=== PATIENT | male | born 1935 | race Caucasian/White ===

== ENCOUNTER 2018-01-07 14:45 | Inpatient (IN) | payer MEDICARE, BC ==
--- NOTE | 2018-01-07 15:23 | ER Document Report ---
ED Medical Screen (RME) - General Chief Complaint: Urinary Problem Stated Complaint: URINATING BLOOD Time Seen by Provider: 01/07/18 15:21 Notes: Spontaneous onset of blood in the urine this morning. He does have pain with urination. He denies being on any blood thinners or previous similar symptoms. TRAVEL OUTSIDE OF THE [place] IN LAST 30 DAYS: No - Related Data Allergies/Adverse Reactions: erythromycin lactobionate [From Erythrocin] Allergy (Verified 01/07/18 14:48) RASH Sulfa (Sulfonamide Antibiotics) Allergy (Verified 01/07/18 14:48) RASH Past Medical History - Social History Chew tobacco use (# tins/day): No Frequency of alcohol use: None Drug Abuse: None - Past Medical History Cardiac Medical History: Denies: Hx Heart Attack, Hx Hypertension Pulmonary Medical History: Denies: Hx Asthma Neurological Medical History: Denies: Hx Cerebrovascular Accident, Hx Seizures Renal/ Medical History: Denies: Hx Peritoneal Dialysis GI Medical History: Denies: Hx Hepatitis, Hx Hiatal Hernia, Hx Ulcer Infectious Medical History: Denies: Hx Hepatitis Past Surgical History: Denies: Hx Open Heart Surgery, Hx Pacemaker Physical Exam - Vital signs Vitals: Temp Pulse Resp BP Pulse Ox 97.4 F 74 18 129/69 H 98 01/07/18 15:02 01/07/18 15:02 01/07/18 15:02 01/07/18 15:02 01/07/18 15:02 Course - Vital Signs Vital signs: Temp Pulse Resp BP Pulse Ox 97.4 F 74 18 129/69 H 98 01/07/18 15:02 01/07/18 15:02 01/07/18 15:02 01/07/18 15:02 01/07/18 15:02
--- NOTE | 2018-01-07 16:45 | ER Document Report ---
ED GI/ - General Chief Complaint: Urinary Problem Stated Complaint: URINATING BLOOD Time Seen by Provider: 01/07/18 15:21 Mode of Arrival: Ambulatory Information source: Patient TRAVEL OUTSIDE OF THE [place] IN LAST 30 DAYS: No - HPI Patient complains to provider of: Hematuria Onset: Other - 3 DAYS Timing/Duration: Constant Quality of pain: Burning, Pressure Severity at maximum: Moderate Severity in ED: Moderate Context: denies: Bad food, Lifting, Out of the country travel, Recent trauma Location: Suprapubic. No: Left flank, Right flank, Left testicle, Right testicle Associated symptoms: None. denies: Chills, Fever, Lightheaded, Nausea, Sweaty, Syncope Exacerbated by: Denies Relieved by: Denies Similar symptoms previously: No Recently seen / treated by doctor: No Notes: 01/07/18 17:03 Gross hematuria first noted 3 days ago, patient states it has been getting gradually worse. Denies passage of clots. - Related Data Allergies/Adverse Reactions: erythromycin lactobionate [From Erythrocin] Allergy (Verified 01/07/18 14:48) RASH Sulfa (Sulfonamide Antibiotics) Allergy (Verified 01/07/18 14:48) RASH Past Medical History - General Information source: Patient - Social History Smoking Status: Never Smoker Chew tobacco use (# tins/day): No Frequency of alcohol use: None Drug Abuse: None Lives with: Spouse/Significant other Family History: Reviewed & Not Pertinent Patient has suicidal ideation: No Patient has homicidal ideation: No - Past Medical History Cardiac Medical History: Reports: None Denies: Hx Heart Attack, Hx Hypertension Pulmonary Medical History: Reports: None Denies: Hx Asthma EENT Medical History: Reports: None Neurological Medical History: Reports: None. Denies: Hx Cerebrovascular Accident, Hx Seizures Endocrine Medical History: Reports: None Renal/ Medical History: Reports: None. Denies: Hx Peritoneal Dialysis Malignancy Medical History: Reports None GI Medical History: Reports: None. Denies: Hx Hepatitis, Hx Hiatal Hernia, Hx Ulcer Musculoskeltal Medical History: Reports None Psychiatric Medical History: Reports: None Infectious Medical History: Denies: Hx Hepatitis Surgical Hx: Negative Past Surgical History: Denies: Hx Open Heart Surgery, Hx Pacemaker Review of Systems - Review of Systems Constitutional: No symptoms reported. denies: Chills, Diaphoresis, Fever EENT: No symptoms reported Cardiovascular: No symptoms reported Respiratory: No symptoms reported Gastrointestinal: No symptoms reported Genitourinary: See HPI Male Genitourinary: See HPI Musculoskeletal: No symptoms reported Skin: No symptoms reported Hematologic/Lymphatic: No symptoms reported. denies: Easy bleeding, Easy bruising Neurological/Psychological: No symptoms reported Physical Exam - Vital signs Vitals: Temp Pulse Resp BP Pulse Ox 97.4 F 74 18 129/69 H 98 01/07/18 15:02 01/07/18 15:02 01/07/18 15:02 01/07/18 15:02 01/07/18 15:02 Interpretation: Normal. No: Hypotensive, Tachycardic, Tachypneic - General General appearance: Appears well, Alert In distress: None - HEENT Head: Normocephalic Eyes: Normal Conjunctiva: Normal Ears: Normal Nasal: Normal Mouth/Lips: Normal Mucous membranes: Normal - Respiratory Respiratory status: No respiratory distress - Cardiovascular Rhythm: Regular - Abdominal Inspection: Normal Distension: No distension - Genitourinary Notes: Continuously dribbling grossly bloody urine. - Back Back: Normal. No: CVA tenderness - Extremities General upper extremity: Normal inspection General lower extremity: Normal inspection. No: Tender, Edema - Neurological Neuro grossly intact: Yes Cognition: Normal Orientation: AAOx4 - Psychological Associated symptoms: Normal affect, Normal mood - Skin Skin Temperature: Warm Skin Moisture: Dry Skin Color: Normal Skin Turgor: Elastic Course - Re-evaluation Re-evalutation: 01/07/18 18:04 Indwelling Correa catheter was inserted by nursing staff without difficulty. 350 cc of grossly bloody urine drained. Patient states he is much more comfortable now. - Vital Signs Vital signs: Temp Pulse Resp BP Pulse Ox 97.4 F 74 18 129/69 H 93 01/07/18 15:02 01/07/18 15:02 01/07/18 15:02 01/07/18 15:02 01/07/18 21:00 - Laboratory Result Diagrams: 01/07/18 17:22 01/07/18 17:22 Laboratory results interpreted by me: 01/07/18 01/07/18 16:00 17:22 Sodium 136.2 L BUN 36 H Creatinine 1.30 H Est GFR (Non-Af Amer) 53 L Glucose 315 H Urine Protein >=500 H Urine Glucose (UA) >=500 H Urine Blood LARGE H - Consults DR. 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 AGREES WITH NEED FOR CBI. DR. SILVERIO Time consulted: 21:45 Consulted provider: will come to ER Discharge - Discharge Clinical Impression: Hematuria Qualifiers: Hematuria type: gross Qualified Code(s): R31.0 - Gross hematuria Diabetes Qualifiers: Diabetes mellitus type: type 2 Diabetes mellitus local intermodal truck driver insulin use: unspecified custodial insulin use status Diabetes mellitus complication status: without complication Qualified Code(s): E11.9 - Type 2 diabetes mellitus without complications Condition: Good Disposition: ADMITTED OBSERVATION Admitting Provider: Hospitalist Unit Admitted: Telemetry Referrals: JOSE MARIA BLANKENSHIP MD [Primary Care Provider] - Follow up as needed
[2018-01-07] MEDS ORDERED: ONDANSETRON HCL INJ/PF 4 MG/2 ML SDV IV ONE (16:56)
[2018-01-07] MEDS ORDERED: FENTANYL CITRATE INJ/PF 100 MCG/2 ML AMPUL IV ONE (16:57)
[2018-01-07 17:35] LABS: ABSOLUTE BASOPHILS # (AUTO) 0.1 10^3/uL (0.0-0.2); ABSOLUTE LYMPHOCYTES (AUTO) 1.5 10^3/uL (0.5-4.7); ABSOLUTE MONOCYTES (AUTO) 0.6 10^3/uL (0.1-1.4); ABSOLUTE NEUT (AUTO) 7.3 10^3/uL (1.7-8.2); BASOPHILS % (AUTO) 0.5 % (0-2); EOSINOPHILS % (AUTO) 0.5 % (0-6); HEMATOCRIT 41.8 % (37.9-51.0); HEMOGLOBIN 13.8 g/dL (13.5-17.0); LYMPHOCYTES % (AUTO) 15.5 % (13-45); MEAN CORPUSCULAR HEMOGLOBIN 29.3 pg (27.0-33.4); MEAN CORPUSCULAR HGB CONC 32.9 g/dL (32.0-36.0); MEAN CORPUSCULAR VOLUME 89 fl (80-97); MONOCYTES % (AUTO) 6.3 % (3-13); PLATELET COUNT 177 10^3/uL (150-450); RED CELL DISTRIBUTION WIDTH 12.8 % (11.5-14.0); SEGMENTED NEUTROPHILS % (AUTO) 77.2 % (42-78); TOTAL CELLS COUNTED % (AUTO) 100 %; WHITE BLOOD COUNT 9.4 10^3/uL (4.0-10.5)
[2018-01-07 17:45] LABS: INTERNATIONAL RATION (INR) 0.96; PROTHROMBIN TIME 13.3 SEC (11.4-15.4)
[2018-01-07 17:53] LABS: APPEARANCE,URINE CLOUDY; BILIRUBIN,URINE NEGATIVE (NEGATIVE); GLUCOSE, URINE >=500 mg/dL (NEGATIVE); KETONES,URINE NEGATIVE (NEGATIVE); LEUKOCYTE ESTERASE,URINE NEGATIVE (NEGATIVE); NITRITE,URINE NEGATIVE (NEGATIVE); PROTEIN,URINE >=500 mg/dL (NEGATIVE); URINE SPECIFIC GRAVITY 1.021; UROBILINOGEN,URINE NEGATIVE mg/dL (<2.0)
[2018-01-07 17:54] LABS: COLOR,URINE RED
[2018-01-07 17:55] LABS: ALANINE AMINOTRANSFERASE 24 U/L (21-72); ALBUMIN 4.2 g/dL (3.5-5.0); ALKALINE PHOSPHATASE 71 U/L (38-126); ANION GAP 11 (5-19); ASPARTATE AMINO TRANSFERASE 22 U/L (17-59); BILIRUBIN,DIRECT 0.3 mg/dL (0.0-0.4); BILIRUBIN,TOTAL 0.7 mg/dL (0.2-1.3); BLOOD UREA NITROGEN 36 mg/dL (7-20); CALCIUM 9.4 mg/dL (8.4-10.2); CARBON DIOXIDE 26 mmol/L (22-30); CHLORIDE 99 mmol/L (98-107); GLUCOSE 315 mg/dL (75-110); POTASSIUM 4.8 mmol/L (3.6-5.0); SODIUM 136.2 mmol/L (137-145)
[2018-01-07] MEDS: NORMAL SALINE 1000 ML 1,000 ML IV PRN ×2 (18:17→23:20)
[2018-01-07] MEDS ORDERED: CEFTRIAXONE 1 GM/D5W RTU 1 GM/50 ML RTUPB IV ONE (19:30)
--- NOTE | 2018-01-07 20:04 | RADIOLOGY REPORT (SQ) ---
EXAM DESCRIPTION: CT LTD RENAL STONE PROTOCOL ON COMPLETED DATE/TIME: 01/07/2018 7:53 pm REASON FOR STUDY: HEMATURIA COMPARISON: None. TECHNIQUE: CT scan of the abdomen and pelvis performed without intravenous or oral contrast. Images reviewed with lung, soft tissue, and bone windows. Reconstructed coronal and sagittal MPR images revi ewed. All images stored on PACS. All CT scanners at this facility use dose modulation, iterative reconstruction, and/or weight based d osing when appropriate to reduce radiation dose to as low as reasonably achievable (ALARA). [facility]: Dose Right [facility]: CareDose [facility]: Dose Right [facility]: Teradose 4D [facility]: Smart [employer] Systems RADIATION DOSE: CT Rad equipment meets quality standard of care and radiation dose reduction techniq ues were employed. CTDIvol: 4.9 mGy. DLP: 276 mGy-cm.mGy. LIMITATIONS: None. FINDINGS: LOWER CHEST: No significant findings. No nodules or infiltrates. NON-CONTRASTED LIVER, SPLEEN, ADRENALS: Evaluation limited by lack of IV contrast. No identified sign ificant masses. PANCREAS: No masses. No peripancreatic inflammatory changes. GALLBLADDER: No identified stones by CT criteria. No inflammatory changes to suggest cholecystitis. RIGHT KIDNEY AND URETER: Well circumscribed low density mass(es) statistically most likely to be cyst (s). Assessment limited by lack of iv contrast. No significant calcifications. No hydronephrosis or hydroureter. LEFT KIDNEY AND URETER: Well circumscribed low density mass(es) statistically most likely to be cyst( s). Assessment limited by lack of iv contrast. Largest 9 cm. No significant calcifications. No hy dronephrosis or hydroureter. AORTA AND RETROPERITONEUM: No aneurysm. No retroperitoneal masses or adenopathy. BOWEL AND PERITONEAL CAVITY: No obvious masses or inflammatory changes. No free fluid. APPENDIX: Normal. PELVIS, BLADDER, AND ABDOMINAL WALL:Extensive high density fluid in bladder consistent with blood. F oley catheter present. Air in the bladder. No definitive mass lesion. BONES: No significant findings. OTHER: No other significant finding. IMPRESSION: No obstructive changes. Multiple masses in the kidneys most likely cysts. Correa catheter in the bladder with extensive hemorrhage present in the bladder. No identified mass. COMMENT: Quality ID # [id number]: Final reports with documentation of one or more dose reduction techniques (e.g., Automated exposure control, adjustment of the mA and/or kV according to patient size, use of iterative reconstruction technique) TECHNICAL DOCUMENTATION: JOB ID: [id number] [employer]- All Rights Reserved Reading location - IP/workstation name: [email or web address]
[2018-01-07] MEDS ORDERED: CEFTRIAXONE SODIUM 1,000 MG in NORMAL SALINE 100 ML IV ONE (20:30)
[2018-01-07] MEDS ORDERED: HYDROMORPHONE HCL INJ/PF 2 MG/ML AMPULE IV ONE (20:50)
[2018-01-07] MEDS ORDERED: TAMSULOSIN HCL 0.4 MG CAP.SR.24H PO ONE (22:02)
[2018-01-07] MEDS ORDERED: DEXTROSE 40% GEL 15 GM TUBE PO PRN ×2 (22:02)
[2018-01-07] MEDS ORDERED: ONDANSETRON HCL INJ/PF 4 MG/2 ML SDV IV PRN (22:02)
[2018-01-07] MEDS ORDERED: DEXTROSE 50%-WATER 25 GM/50 ML DISP.SYRIN IV PRN ×2 (22:02)
[2018-01-07] MEDS ORDERED: GLUCAGON,HUMAN RECOMB 1 MG INJ IM PRN (22:02)
[2018-01-07] MEDS ORDERED: NORMAL SALINE 1000 ML 1,000 ML IV SCH (22:15)
[2018-01-08] MEDS: INSULIN LISPRO 100 UNIT/ML 3 ML VIAL SUBCUT PRN ×3 (00:49→16:54)
[2018-01-08] MEDS: ACETAMINOPHEN 325 MG TABLET PO PRN ×2 (05:02→08:50)
[2018-01-08] MEDS: HEPARIN SOD (PORCINE) 5,000 UNIT/ML 1 ML SYRINGE SUBCUT SCH ×2 (05:02→13:38)
[2018-01-08 05:15] LABS: ABSOLUTE EOSINOPHILS # (AUTO) 0.1 10^3/uL (0.0-0.6); ABSOLUTE LYMPHOCYTES (AUTO) 2.1 10^3/uL (0.5-4.7); ABSOLUTE NEUT (AUTO) 5.4 10^3/uL (1.7-8.2); BASOPHILS % (AUTO) 0.4 % (0-2); EOSINOPHILS % (AUTO) 0.9 % (0-6); HEMATOCRIT 35.6 % (37.9-51.0); LYMPHOCYTES % (AUTO) 24.2 % (13-45); MEAN CORPUSCULAR HEMOGLOBIN 29.9 pg (27.0-33.4); MEAN CORPUSCULAR HGB CONC 33.7 g/dL (32.0-36.0); MEAN CORPUSCULAR VOLUME 89 fl (80-97); MONOCYTES % (AUTO) 11.9 % (3-13); PLATELET COUNT 135 10^3/uL (150-450); RED BLOOD COUNT 4.01 10^6/uL (4.35-5.55); SEGMENTED NEUTROPHILS % (AUTO) 62.6 % (42-78); TOTAL CELLS COUNTED % (AUTO) 100 %; WHITE BLOOD COUNT 8.7 10^3/uL (4.0-10.5)
[2018-01-08 05:36] LABS: ANION GAP 8 (5-19); BLOOD UREA NITROGEN 33 mg/dL (7-20); CALCIUM 8.8 mg/dL (8.4-10.2); CARBON DIOXIDE 27 mmol/L (22-30); CHLORIDE 107 mmol/L (98-107); GLUCOSE 142 mg/dL (75-110); POTASSIUM 4.1 mmol/L (3.6-5.0); SODIUM 142.3 mmol/L (137-145)
[2018-01-08] MEDS ORDERED: KETOROLAC TROMETHAMINE INJ/PF 30 MG/1 ML SDV IV ONE (05:45)
--- NOTE | 2018-01-08 06:07 | PDOC H&P ---
History of Present Illness Admission Date/PCP: 01/07/18 22:25 JOSE MARIA BLANKENSHIP MD Patient complains of: Urinating blood History of Present Illness: TR TUCKER is a 82 year old male with a past medical history of BPH and diabetes. Presenting with 48 hours of urinating blood. Denying recent dysuria , polyuria or fever. No previous episode, no new medication. In the emergency room is found to have hematuria with clots. Limited renal stone protocol CT shows bilateral renal cysts, extensive hemorrhage in the bladder without obstruction. Urology Dr. Timmons is consulted recommending continuous bladder irrigation. He is referred to the hospitalist for admission. Past Medical History Cardiac Medical History: Reports: None Denies: Myocardial Infarction, Hypertension Pulmonary Medical History: Reports: None Denies: Asthma EENT Medical History: Reports: None Neurological Medical History: Reports: None Denies: Seizures Endocrine Medical History: Reports: None, Diabetes Mellitus Type 2 Renal/ Medical History: Reports: None Malignancy Medical History: Reports: None GI Medical History: Reports: None Denies: Hepatitis, Hiatal Hernia Musculoskeltal Medical History: Reports: None Psychiatric Medical History: Reports: None Hematology: Denies: Anemia, Sickle Cell Disease Past Surgical History Past Surgical History: Denies: Pacemaker Social History Information Source: Patient Lives with: Spouse/Significant other Smoking Status: Never Smoker Frequency of Alcohol Use: Rare Drugs: None Family History Family History: None Parental Family History Reviewed: Yes Children Family History Reviewed: Yes Sibling(s) Family History Reviewed.: Yes Medication/Allergy Home Medications: Insulin Glargine,Hum.rec.anlog [Lantus Solostar] 12 units SQ [id number] 01/08/18 Saxagliptin HCl [Onglyza] 5 mg PO PCSUPPER 01/08/18 Allergies/Adverse Reactions: erythromycin lactobionate [From Erythrocin] Allergy (Verified 01/07/18 14:48) RASH Sulfa (Sulfonamide Antibiotics) Allergy (Verified 01/07/18 14:48) RASH Review of Systems Constitutional: ABSENT: chills, fever(s), headache(s), weight gain, weight loss Eyes: ABSENT: visual disturbances Ears: ABSENT: hearing changes Cardiovascular: ABSENT: chest pain, dyspnea on exertion, edema, orthropnea, palpitations Respiratory: ABSENT: cough, hemoptysis Gastrointestinal: ABSENT: abdominal pain, constipation, diarrhea, hematemesis, hematochezia, nausea, vomiting Genitourinary: ABSENT: dysuria, hematuria Musculoskeletal: ABSENT: joint swelling Integumentary: ABSENT: rash, wounds Neurological: ABSENT: abnormal gait, abnormal speech, confusion, dizziness, focal weakness, syncope Psychiatric: ABSENT: anxiety, depression, homidical ideation, suicidal ideation Endocrine: ABSENT: cold intolerance, heat intolerance, polydipsia, polyuria Hematologic/Lymphatic: ABSENT: easy bleeding, easy bruising Physical Exam Vital Signs: Temp Pulse Resp BP Pulse Ox 98.3 F 65 20 137/55 H 100 01/08/18 03:57 01/08/18 03:57 01/08/18 03:57 01/08/18 03:57 01/08/18 03:57 General appearance: PRESENT: mild distress - Intermittent pelvic cramps, well- developed, well-nourished Head exam: PRESENT: atraumatic, normocephalic Eye exam: PRESENT: conjunctiva pink, EOMI, PERRLA. ABSENT: scleral icterus Ear exam: PRESENT: normal external ear exam Mouth exam: PRESENT: moist, tongue midline Neck exam: ABSENT: carotid bruit, JVD, lymphadenopathy, thyromegaly Respiratory exam: PRESENT: clear to auscultation meagan. ABSENT: rales, rhonchi, wheezes Cardiovascular exam: PRESENT: RRR. ABSENT: diastolic murmur, rubs, systolic murmur Pulses: PRESENT: normal dorsalis pedis pul Vascular exam: PRESENT: normal capillary refill GI/Abdominal exam: PRESENT: normal bowel sounds, soft. ABSENT: distended, guarding, mass, organolmegaly, rebound, tenderness Rectal exam: PRESENT: deferred Extremities exam: PRESENT: full ROM. ABSENT: calf tenderness, clubbing, pedal edema Neurological exam: PRESENT: alert, awake, oriented to person, oriented to place , oriented to time, oriented to situation, CN II-XII grossly intact. ABSENT: motor sensory deficit Psychiatric exam: PRESENT: appropriate affect, normal mood. ABSENT: homicidal ideation, suicidal ideation Skin exam: PRESENT: dry, intact, warm. ABSENT: cyanosis, rash Results Laboratory Results: 01/08/18 04:26 01/08/18 04:26 01/08/18 01/08/18 04:26 04:26 WBC 8.7 RBC 4.01 L Hgb 12.0 L Hct 35.6 L MCV 89 MCH 29.9 MCHC 33.7 RDW 13.0 Plt Count 135 L Seg Neutrophils % 62.6 Lymphocytes % 24.2 Monocytes % 11.9 Eosinophils % 0.9 Basophils % 0.4 Absolute Neutrophils 5.4 Absolute Lymphocytes 2.1 Absolute Monocytes 1.0 Absolute Eosinophils 0.1 Absolute Basophils 0.0 Sodium 142.3 Potassium 4.1 Chloride 107 Carbon Dioxide 27 Anion Gap 8 BUN 33 H Creatinine 1.28 H Est GFR ( Amer) > 60 Est GFR (Non-Af Amer) 54 L Glucose 142 H Calcium 8.8 Impressions: Limited or Localized CT 01/07/18 19:31 IMPRESSION: No obstructive changes. Multiple masses in the kidneys most likely cysts. Correa catheter in the bladder with extensive hemorrhage present in the bladder. No identified mass. Assessment & Plan - Diagnosis (1) Hematuria Qualifiers: Hematuria type: gross Qualified Code(s): R31.0 - Gross hematuria Is this a current diagnosis for this admission?: Yes Plan: Urology consultation, continuous bladder irrigation. (2) Diabetes Qualifiers: Diabetes mellitus type: type 2 Diabetes mellitus terminal superintendent insulin use: unspecified prison insulin use status Diabetes mellitus complication status : without complication Qualified Code(s): E11.9 - Type 2 diabetes mellitus without complications Is this a current diagnosis for this admission?: Yes Plan: Outpatient regiment with Humalog sliding scale.
[2018-01-08] MEDS: DOCUSATE SODIUM 100 MG CAPSULE PO SCH ×2 (09:44→18:35)
[2018-01-08] MEDS ORDERED: OXYCODONE-ACETAMINOPHEN 5-325 MG TABLET PO ONE (09:45)
[2018-01-08] MEDS ORDERED: ONDANSETRON HCL INJ/PF 4 MG/2 ML SDV IV PRN (10:00)
[2018-01-08] MEDS ORDERED: FENTANYL 25 MCG/HR PATCH.TD72 TD ONE (11:00)
[2018-01-08] MEDS ORDERED: LIDOCAINE 2% URO-JET 5 ML KIT MM ONE (12:00)
[2018-01-08 14:31] LABS: HEMATOCRIT 33.7 % (37.9-51.0); HEMOGLOBIN 11.3 g/dL (13.5-17.0); MEAN CORPUSCULAR HEMOGLOBIN 29.7 pg (27.0-33.4); MEAN CORPUSCULAR HGB CONC 33.5 g/dL (32.0-36.0); MEAN CORPUSCULAR VOLUME 89 fl (80-97); PLATELET COUNT 133 10^3/uL (150-450); RED BLOOD COUNT 3.81 10^6/uL (4.35-5.55); RED CELL DISTRIBUTION WIDTH 13.2 % (11.5-14.0)
[2018-01-08] MEDS: NORMAL SALINE 1000 ML 1,000 ML IV PRN (18:36)
[2018-01-08 19:52] LABS: HEMATOCRIT 36.5 % (37.9-51.0); MEAN CORPUSCULAR HEMOGLOBIN 29.3 pg (27.0-33.4); MEAN CORPUSCULAR HGB CONC 32.7 g/dL (32.0-36.0); MEAN CORPUSCULAR VOLUME 90 fl (80-97); PLATELET COUNT 150 10^3/uL (150-450); RED BLOOD COUNT 4.08 10^6/uL (4.35-5.55); RED CELL DISTRIBUTION WIDTH 12.8 % (11.5-14.0); WHITE BLOOD COUNT 8.8 10^3/uL (4.0-10.5)
--- NOTE | 2018-01-08 20:45 | PDOC PROGRESS REPORT ---
Subjective Progress Note for:: 01/08/18 Subjective:: Patient complains of lower abdominal pain and I started him on 25 Des fentanyl patch after which he claims the pain has subsided. Reason For Visit: HEMATURIA,DIABETES Physical Exam Vital Signs: Temp Pulse Resp BP Pulse Ox 98.3 F 70 10 L 105/48 L 96 01/08/18 15:22 01/08/18 15:22 01/08/18 15:22 01/08/18 15:22 01/08/18 15:22 Intake & Output 01/07/18 01/08/18 01/09/18 06:59 06:59 06:59 Intake Total 750 5777 Output Total 1300 6250 Balance -550 -473 Weight 66.1 kg General appearance: PRESENT: no acute distress, well-developed, well-nourished Respiratory exam: PRESENT: clear to auscultation meagan. ABSENT: rales, rhonchi, wheezes Cardiovascular exam: PRESENT: RRR. ABSENT: diastolic murmur, rubs, systolic murmur GI/Abdominal exam: PRESENT: tenderness - Lower abdominal Neurological exam: PRESENT: alert, awake, oriented to time, oriented to situation Results Laboratory Results: 01/08/18 19:30 01/08/18 04:26 01/08/18 01/08/18 01/08/18 04:26 04:26 14:19 WBC 8.7 9.0 RBC 4.01 L 3.81 L Hgb 12.0 L 11.3 L Hct 35.6 L 33.7 L MCV 89 89 MCH 29.9 29.7 MCHC 33.7 33.5 RDW 13.0 13.2 Plt Count 135 L 133 L Seg Neutrophils % 62.6 Lymphocytes % 24.2 Monocytes % 11.9 Eosinophils % 0.9 Basophils % 0.4 Absolute Neutrophils 5.4 Absolute Lymphocytes 2.1 Absolute Monocytes 1.0 Absolute Eosinophils 0.1 Absolute Basophils 0.0 Sodium 142.3 Potassium 4.1 Chloride 107 Carbon Dioxide 27 Anion Gap 8 BUN 33 H Creatinine 1.28 H Est GFR ( Amer) > 60 Est GFR (Non-Af Amer) 54 L Glucose 142 H Calcium 8.8 01/08/18 19:30 WBC 8.8 RBC 4.08 L Hgb 12.0 L Hct 36.5 L MCV 90 MCH 29.3 MCHC 32.7 RDW 12.8 Plt Count 150 Seg Neutrophils % Lymphocytes % Monocytes % Eosinophils % Basophils % Absolute Neutrophils Absolute Lymphocytes Absolute Monocytes Absolute Eosinophils Absolute Basophils Sodium Potassium Chloride Carbon Dioxide Anion Gap BUN Creatinine Est GFR ( Amer) Est GFR (Non-Af Amer) Glucose Calcium Impressions: Limited or Localized CT 01/07/18 19:31 IMPRESSION: No obstructive changes. Multiple masses in the kidneys most likely cysts. Correa catheter in the bladder with extensive hemorrhage present in the bladder. No identified mass. Assessment & Plan - Diagnosis (1) Diabetes Qualifiers: Diabetes mellitus type: type 2 Diabetes mellitus rodent exterminator insulin use: unspecified long-term insulin use status Diabetes mellitus complication status : without complication Qualified Code(s): E11.9 - Type 2 diabetes mellitus without complications Is this a current diagnosis for this admission?: Yes (2) Hematuria Qualifiers: Hematuria type: gross Qualified Code(s): R31.0 - Gross hematuria Is this a current diagnosis for this admission?: Yes Plan: Patient has been on continuous bladder irrigation. He is draining well and becoming clear. The urologist initially contemplated to do cystoscopy on Friday but after he evaluated him once the urine cleared may be he will scope him tomorrow. - Time Time Spent with patient: 15-24 minutes
[2018-01-09] MEDS: HEPARIN SOD (PORCINE) 5,000 UNIT/ML 1 ML SYRINGE SUBCUT SCH ×4 (00:16→20:41)
[2018-01-09 01:36] LABS: HEMATOCRIT 33.9 % (37.9-51.0); HEMOGLOBIN 11.3 g/dL (13.5-17.0); MEAN CORPUSCULAR HEMOGLOBIN 29.7 pg (27.0-33.4); MEAN CORPUSCULAR HGB CONC 33.4 g/dL (32.0-36.0); MEAN CORPUSCULAR VOLUME 89 fl (80-97); PLATELET COUNT 133 10^3/uL (150-450); RED CELL DISTRIBUTION WIDTH 13.2 % (11.5-14.0); WHITE BLOOD COUNT 10.8 10^3/uL (4.0-10.5)
[2018-01-09] MEDS: NORMAL SALINE 1000 ML 1,000 ML IV PRN ×3 (02:09→18:51)
[2018-01-09 08:25] LABS: ABSOLUTE EOSINOPHILS # (AUTO) 0.1 10^3/uL (0.0-0.6); ABSOLUTE LYMPHOCYTES (AUTO) 1.9 10^3/uL (0.5-4.7); ABSOLUTE MONOCYTES (AUTO) 1.1 10^3/uL (0.1-1.4); ABSOLUTE NEUT (AUTO) 7.2 10^3/uL (1.7-8.2); BASOPHILS % (AUTO) 0.3 % (0-2); EOSINOPHILS % (AUTO) 0.6 % (0-6); HEMATOCRIT 34.5 % (37.9-51.0); HEMOGLOBIN 11.4 g/dL (13.5-17.0); LYMPHOCYTES % (AUTO) 18.2 % (13-45); MEAN CORPUSCULAR HEMOGLOBIN 29.6 pg (27.0-33.4); MEAN CORPUSCULAR VOLUME 90 fl (80-97); MONOCYTES % (AUTO) 10.4 % (3-13); PLATELET COUNT 127 10^3/uL (150-450); RED BLOOD COUNT 3.85 10^6/uL (4.35-5.55); SEGMENTED NEUTROPHILS % (AUTO) 70.5 % (42-78); TOTAL CELLS COUNTED % (AUTO) 100 %; WHITE BLOOD COUNT 10.2 10^3/uL (4.0-10.5)
[2018-01-09 08:40] LABS: ANION GAP 7 (5-19); BLOOD UREA NITROGEN 32 mg/dL (7-20); CARBON DIOXIDE 24 mmol/L (22-30); CHLORIDE 109 mmol/L (98-107); GLUCOSE 146 mg/dL (75-110); POTASSIUM 4.5 mmol/L (3.6-5.0); SODIUM 139.9 mmol/L (137-145)
[2018-01-09] MEDS: DOCUSATE SODIUM 100 MG CAPSULE PO SCH ×2 (10:21→18:55)
--- NOTE | 2018-01-09 14:30 | PDOC PROGRESS REPORT ---
Subjective Progress Note for:: 01/09/18 Subjective:: I seen patient resting comfortably he is awake alert and oriented. He is not in pain or any form of distress. He has been getting continuous bladder irrigation for his hematuria. He is doing is getting clear.. Reason For Visit: HEMATURIA,DIABETES Physical Exam Vital Signs: Temp Pulse Resp BP Pulse Ox 100.0 F 89 15 123/51 L 96 01/09/18 07:16 01/09/18 07:16 01/09/18 07:16 01/09/18 07:16 01/09/18 07:16 Intake & Output 01/08/18 01/09/18 01/10/18 06:59 06:59 06:59 Intake Total 750 7152 Output Total 1300 9000 Balance -550 -1848 Weight 66.1 kg 68.4 kg General appearance: PRESENT: no acute distress, well-developed, well-nourished Respiratory exam: PRESENT: clear to auscultation meagan. ABSENT: rales, rhonchi, wheezes Cardiovascular exam: PRESENT: RRR. ABSENT: diastolic murmur, rubs, systolic murmur GI/Abdominal exam: PRESENT: normal bowel sounds, soft. ABSENT: distended, guarding, mass, organolmegaly, rebound, tenderness Gentrourinary exam: PRESENT: other - He has been on continuous bladder irrigation. Results Laboratory Results: 01/09/18 07:34 01/09/18 07:34 01/08/18 01/08/18 01/09/18 14:19 19:30 01:27 WBC 9.0 8.8 10.8 H RBC 3.81 L 4.08 L 3.80 L Hgb 11.3 L 12.0 L 11.3 L Hct 33.7 L 36.5 L 33.9 L MCV 89 90 89 MCH 29.7 29.3 29.7 MCHC 33.5 32.7 33.4 RDW 13.2 12.8 13.2 Plt Count 133 L 150 133 L Seg Neutrophils % Lymphocytes % Monocytes % Eosinophils % Basophils % Absolute Neutrophils Absolute Lymphocytes Absolute Monocytes Absolute Eosinophils Absolute Basophils Sodium Potassium Chloride Carbon Dioxide Anion Gap BUN Creatinine Est GFR ( Amer) Est GFR (Non-Af Amer) Glucose Calcium 01/09/18 01/09/18 07:34 07:34 WBC 10.2 RBC 3.85 L Hgb 11.4 L Hct 34.5 L MCV 90 MCH 29.6 MCHC 33.0 RDW 13.0 Plt Count 127 L Seg Neutrophils % 70.5 Lymphocytes % 18.2 Monocytes % 10.4 Eosinophils % 0.6 Basophils % 0.3 Absolute Neutrophils 7.2 Absolute Lymphocytes 1.9 Absolute Monocytes 1.1 Absolute Eosinophils 0.1 Absolute Basophils 0.0 Sodium 139.9 Potassium 4.5 Chloride 109 H Carbon Dioxide 24 Anion Gap 7 BUN 32 H Creatinine 1.06 Est GFR ( Amer) > 60 Est GFR (Non-Af Amer) > 60 Glucose 146 H Calcium 8.0 L Impressions: Limited or Localized CT 01/07/18 19:31 IMPRESSION: No obstructive changes. Multiple masses in the kidneys most likely cysts. Correa catheter in the bladder with extensive hemorrhage present in the bladder. No identified mass. Assessment & Plan - Diagnosis (1) Diabetes Qualifiers: Diabetes mellitus type: type 2 Diabetes mellitus exterminator termite insulin use: unspecified exterminator termite insulin use status Diabetes mellitus complication status : without complication Qualified Code(s): E11.9 - Type 2 diabetes mellitus without complications Is this a current diagnosis for this admission?: Yes Plan: Continue current regimen (2) Hematuria Qualifiers: Hematuria type: gross Qualified Code(s): R31.0 - Gross hematuria Is this a current diagnosis for this admission?: Yes Plan: Patient has been on continuous bladder irrigation. He is draining well and becoming clear. The urologist initially contemplated to do cystoscopy on Friday now recommended to discharge the patient was his urine completely clear to count catheter and get him an appointment in his office for further evaluation. - Time Time Spent with patient: 25-34 minutes - Potential discharge for tomorrow
[2018-01-09 19:59] LABS: HEMATOCRIT 34.6 % (37.9-51.0); HEMOGLOBIN 11.5 g/dL (13.5-17.0); MEAN CORPUSCULAR HEMOGLOBIN 29.8 pg (27.0-33.4); MEAN CORPUSCULAR HGB CONC 33.1 g/dL (32.0-36.0); MEAN CORPUSCULAR VOLUME 90 fl (80-97); PLATELET COUNT 132 10^3/uL (150-450); RED BLOOD COUNT 3.85 10^6/uL (4.35-5.55); WHITE BLOOD COUNT 9.7 10^3/uL (4.0-10.5)
[2018-01-10] MEDS: HEPARIN SOD (PORCINE) 5,000 UNIT/ML 1 ML SYRINGE SUBCUT SCH ×2 (02:32→13:03)
[2018-01-10 05:11] LABS: ABSOLUTE EOSINOPHILS # (AUTO) 0.2 10^3/uL (0.0-0.6); ABSOLUTE MONOCYTES (AUTO) 0.9 10^3/uL (0.1-1.4); ABSOLUTE NEUT (AUTO) 5.5 10^3/uL (1.7-8.2); BASOPHILS % (AUTO) 0.5 % (0-2); EOSINOPHILS % (AUTO) 2.6 % (0-6); HEMATOCRIT 34.9 % (37.9-51.0); HEMOGLOBIN 11.5 g/dL (13.5-17.0); LYMPHOCYTES % (AUTO) 23.2 % (13-45); MEAN CORPUSCULAR HEMOGLOBIN 29.4 pg (27.0-33.4); MEAN CORPUSCULAR HGB CONC 33.1 g/dL (32.0-36.0); MEAN CORPUSCULAR VOLUME 89 fl (80-97); MONOCYTES % (AUTO) 10.5 % (3-13); PLATELET COUNT 119 10^3/uL (150-450); RED BLOOD COUNT 3.93 10^6/uL (4.35-5.55); RED CELL DISTRIBUTION WIDTH 12.9 % (11.5-14.0); SEGMENTED NEUTROPHILS % (AUTO) 63.2 % (42-78); TOTAL CELLS COUNTED % (AUTO) 100 %; WHITE BLOOD COUNT 8.6 10^3/uL (4.0-10.5)
[2018-01-10] MEDS: INSULIN LISPRO 100 UNIT/ML 3 ML VIAL SUBCUT PRN (09:57)
[2018-01-10] MEDS: DOCUSATE SODIUM 100 MG CAPSULE PO SCH (09:57)
--- NOTE | 2018-01-10 11:42 | PDOC DISCHARGE SUMMARY ---
General - Admit/Disc Date/PCP Admission Date/Primary Care Provider: 01/07/18 22:25 JOSE MARIA BLANKENSHIP MD Discharge Date: 01/10/18 - Discharge Diagnosis (1) Diabetes Is this a current diagnosis for this admission?: Yes (2) Hematuria Is this a current diagnosis for this admission?: Yes - Additional Information Discharge Diet: Diabetic Discharge Activity: Activity As Tolerated Prescriptions: Atorvastatin Calcium [Lipitor 20 mg Tablet] 20 mg PO QHS #30 tablet Carvedilol [Coreg 6.25 mg Tablet] 6.25 mg PO Q12 #60 tablet Lisinopril 5 mg PO DAILY #30 tablet Phenazopyridine HCl 200 mg PO Q8H #30 tablet Home Medications: Insulin Glargine,Hum.rec.anlog [Lantus Solostar] 12 units SQ ACBRKFST 01/08/18 Saxagliptin HCl [Onglyza] 5 mg PO PCSUPPER 01/08/18 Atorvastatin Calcium [Lipitor 20 mg Tablet] 20 mg PO QHS #30 tablet 01/10/18 Carvedilol [Coreg 6.25 mg Tablet] 6.25 mg PO Q12 #60 tablet 01/10/18 Lisinopril 5 mg PO DAILY #30 tablet 01/10/18 Phenazopyridine HCl 200 mg PO Q8H #30 tablet 01/10/18 History of Present Illness History of Present Illness: TR TUCKER is a 82 year old male with a past medical history of BPH and diabetes. Presenting with 48 hours of urinating blood. Denying recent dysuria , polyuria or fever. No previous episode, no new medication. In the emergency room is found to have hematuria with clots. Limited renal stone protocol CT shows bilateral renal cysts, extensive hemorrhage in the bladder without obstruction. Urology Dr. Timmons is consulted recommending continuous bladder irrigation. He is referred to the hospitalist for admission. Hospital Course Hospital Course: Patient has been managed with continuous bladder irrigation. His hematuria gradually subsided and his catheter drains clear urine. Patient was reevaluated by ,urologist who recommended to discharge the patient if he is able to void after removal of the Correa catheter. And follow-up with him in his office. His hospital course is smooth and uncomplicated. Of note his CT scan of the abdomen reported as no obstructive changes, multiple masses in the kidneys most likely cysts. Today on the day of discharge I examined the patient while he is resting in bed comfortably. He is not in any form of distress. he is awake alert and oriented. I will continue all his medication and to his medication list I added lisinopril, Lipitor, and metoprolol succinate. Physical Exam Vital Signs: Temp Pulse Resp BP Pulse Ox 99.1 F 94 12 129/69 H 98 01/10/18 10:15 01/10/18 10:15 01/10/18 10:15 01/10/18 10:15 01/10/18 10:15 Intake & Output 01/09/18 01/10/18 01/11/18 06:59 06:59 06:59 Intake Total 7103 3375 Output Total 9000 4610 Balance -1848 -1235 Weight 68.4 kg 69.8 kg General appearance: PRESENT: no acute distress, well-developed, well-nourished Head exam: PRESENT: atraumatic, normocephalic Respiratory exam: PRESENT: clear to auscultation meagan. ABSENT: rales, rhonchi, wheezes Cardiovascular exam: PRESENT: RRR. ABSENT: diastolic murmur, rubs, systolic murmur GI/Abdominal exam: PRESENT: normal bowel sounds, soft. ABSENT: distended, guarding, mass, organolmegaly, rebound, tenderness Gentrourinary exam: PRESENT: other - Some bloody discharge from external urethral meatus after the removal of catheter Neurological exam: PRESENT: alert, awake, oriented to time, oriented to situation Results Laboratory Results: 01/10/18 04:35 01/09/18 07:34 01/09/18 01/10/18 19:46 04:35 WBC 9.7 8.6 RBC 3.85 L 3.93 L Hgb 11.5 L 11.5 L Hct 34.6 L 34.9 L MCV 90 89 MCH 29.8 29.4 MCHC 33.1 33.1 RDW 13.0 12.9 Plt Count 132 L 119 L Seg Neutrophils % 63.2 Lymphocytes % 23.2 Monocytes % 10.5 Eosinophils % 2.6 Basophils % 0.5 Absolute Neutrophils 5.5 Absolute Lymphocytes 2.0 Absolute Monocytes 0.9 Absolute Eosinophils 0.2 Absolute Basophils 0.0 Impressions: Limited or Localized CT 01/07/18 19:31 IMPRESSION: No obstructive changes. Multiple masses in the kidneys most likely cysts. Correa catheter in the bladder with extensive hemorrhage present in the bladder. No identified mass. Qualifiers - * PATEINT BEING DISCHARGED WITH ANY OF THE FOLLOWING DIAGNOSIS?: No
[2018-01-10 12:27] VITALS: BP 135/58
== END 2018-01-10 13:50 | disposition home or self-care (01) | DRG 696 ==
LOC: ER 14:45 → OBSVTOIN 22:25 → EH 22:25 → 3W 01-08 01:01
PROVIDERS: ADMIT Internal Medicine; ATTEND Internal Medicine
DX: R31.0 Gross hematuria (principal); E11.9 Type 2 diabetes mellitus without complications; N40.1 Benign prostatic hyperplasia with lower urinary tract symptoms; Z79.4 Long term (current) use of insulin
CPT/HCPCS: 36415; 51702; 76380; 80048; 80053; 81001; 82962; 85025; 85027; 85610; 87086; 96361; 96365; 96375; 99285; J0696; J1170; J1644; J1815; J1885; J2405; J3010; J3490; J7030

== ENCOUNTER 2020-09-16 18:05 | Emergency (ER) | payer MEDICARE, BC ==
--- NOTE | 2020-09-16 18:33 | ER Document Report ---
ED Medical Screen (RME) - General Chief Complaint: General Weakness Stated Complaint: GENERAL WEAKNESS Time Seen by Provider: 09/16/20 18:26 Primary Care Provider: JOSE MARIA BLANKENSHIP MD [Primary Care Provider] - Follow up as needed Notes: Patient presents complaining of generalized weakness for the past 2 days. Patient was diagnosed with Covid 2 weeks ago. Patient denies any chest pain or headache pain. Patient denies any pain symptoms. Patient denies any shortness of breath. Patient denies any worsening of his cough that he has had. Patient does have an underlying history of diabetes. I have greeted and performed a rapid initial assessment of this patient. A comprehensive ED assessment and evaluation of the patient, analysis of test results and completion of the medical decision making process will be conducted by additional ED providers. TRAVEL OUTSIDE OF THE [place] IN LAST 30 DAYS: No - Related Data Allergies/Adverse Reactions: erythromycin lactobionate [From Erythrocin] Allergy (Verified 01/07/18 14:48) RASH Sulfa (Sulfonamide Antibiotics) Allergy (Verified 01/07/18 14:48) RASH Past Medical History - Past Medical History Cardiac Medical History: Denies: Hx Heart Attack, Hx Hypertension Pulmonary Medical History: Denies: Hx Asthma Neurological Medical History: Denies: Hx Cerebrovascular Accident, Hx Seizures Endocrine Medical History: Reports: Hx Diabetes Mellitus Type 2 Renal/ Medical History: Denies: Hx Peritoneal Dialysis GI Medical History: Denies: Hx Hepatitis, Hx Hiatal Hernia, Hx Ulcer Infectious Medical History: Denies: Hx Hepatitis Past Surgical History: Denies: Hx Open Heart Surgery, Hx Pacemaker Physical Exam - Respiratory Respiratory status: No respiratory distress Breath sounds: Nonproductive cough - Cardiovascular Rhythm: Regular. No: Tachycardia Doctor's Discharge - Discharge Referrals: JOSE MARIA BLANKENSHIP MD [Primary Care Provider] - Follow up as needed
--- NOTE | 2020-09-16 19:18 | RADIOLOGY REPORT (SQ) ---
EXAM DESCRIPTION: CHEST SINGLE VIEW IMAGES COMPLETED DATE/TIME: 09/16/2020 4:02 pm REASON FOR STUDY: weakness, cough, hx covid COMPARISON: 01/13/2010 EXAM PARAMETERS: NUMBER OF VIEWS: One view. TECHNIQUE: Single frontal radiographic view of the chest acquired. RADIATION DOSE: NA LIMITATIONS: External leads partially obscure underlying structures. FINDINGS: LUNGS AND PLEURA: New left lung opacities, more pronounced in the periphery suspicious for pneumonia. No pleural effusion or pneumothorax. Right lung is clear. MEDIASTINUM AND HILAR STRUCTURES: No masses. Contour normal. HEART AND VASCULAR STRUCTURES: Heart normal in size. Normal vasculature. BONES: No acute findings. HARDWARE: None in the chest. OTHER: No other significant finding. IMPRESSION: Left lung opacities concerning for pneumonia. TECHNICAL DOCUMENTATION: JOB ID: [id number] 2010 [employer]- All Rights Reserved Reading location - IP/workstation name: [email or web address]
[2020-09-16] MEDS ORDERED: CEFTRIAXONE 1 GM/D5W RTU 1 GM/50 ML RTUPB IV ONE (19:27)
[2020-09-16 20:19] LABS: ABSOLUTE MONOCYTES (AUTO) 0.6 10^3/uL (0.1-1.4); BASOPHILS % (AUTO) 0.3 % (0-2); HEMATOCRIT 44.5 % (37.9-51.0); HEMOGLOBIN 14.8 g/dL (13.5-17.0); LYMPHOCYTES % (AUTO) 15.4 % (13-45); MEAN CORPUSCULAR HEMOGLOBIN 28.7 pg (27.0-33.4); MEAN CORPUSCULAR HGB CONC 33.1 g/dL (32.0-36.0); MEAN CORPUSCULAR VOLUME 87 fl (80-97); PLATELET COUNT 254 10^3/uL (150-450); RED BLOOD COUNT 5.14 10^6/uL (4.35-5.55); SEGMENTED NEUTROPHILS % (AUTO) 75.3 % (42-78); TOTAL CELLS COUNTED % (AUTO) 100 %; WHITE BLOOD COUNT 6.7 10^3/uL (4.0-10.5)
[2020-09-16 20:43] LABS: ALBUMIN 3.4 g/dL (3.5-5.0); ALKALINE PHOSPHATASE 57 U/L (38-126); ANION GAP 8 (5-19); ASPARTATE AMINO TRANSFERASE 31 U/L (17-59); BILIRUBIN,DIRECT 0.3 mg/dL (0.0-0.4); BILIRUBIN,TOTAL 0.7 mg/dL (0.2-1.3); BLOOD UREA NITROGEN 40 mg/dL (7-20); CALCIUM 8.8 mg/dL (8.4-10.2); CARBON DIOXIDE 29 mmol/L (22-30); CHLORIDE 95 mmol/L (98-107); GLUCOSE 260 mg/dL (75-110); POTASSIUM 4.4 mmol/L (3.6-5.0); TOTAL PROTEIN 6.9 g/dL (6.3-8.2)
[2020-09-16] MEDS ORDERED: NORMAL SALINE 1000 ML 1,000 ML IV ONE (21:58)
[2020-09-16 22:23] LABS: APPEARANCE,URINE CLEAR; BILIRUBIN,URINE NEGATIVE (NEGATIVE); COLOR,URINE YELLOW; GLUCOSE, URINE >=500 mg/dL (NEGATIVE); KETONES,URINE 20 mg/dL (NEGATIVE); LEUKOCYTE ESTERASE,URINE NEGATIVE (NEGATIVE); NITRITE,URINE NEGATIVE (NEGATIVE); PROTEIN,URINE 100 mg/dL (NEGATIVE); URINE SPECIFIC GRAVITY 1.021; UROBILINOGEN,URINE NEGATIVE mg/dL (<2.0)
[2020-09-16] MEDS ORDERED: DOXYCYCLINE HYCLATE 100 MG TABLET PO ONE (23:15)
--- NOTE | 2020-09-16 23:17 | ER Document Report ---
ED General - General Chief Complaint: Shortness Of Breath Stated Complaint: GENERAL WEAKNESS Time Seen by Provider: 09/16/20 18:26 Primary Care Provider: JOSE MARIA BLANKENSHIP MD [EMERITUS] - Follow up as needed TRAVEL OUTSIDE OF THE [place] IN LAST 30 DAYS: No - HPI Notes: Patient is an 85-year-old male who presents to the emergency department for evaluation of generalized weakness. He states that just under 2 weeks ago he was diagnosed with COVID-19. He has been quarantining at home. He has had minimal cough. No nausea or vomiting, minimal diarrhea. He states that over the last several days he is gotten more weak. He really does not have much of an appetite. He is not eating or drinking much. He is still urinating. He denies any pain of any sort. No shortness of breath. His cough has been stable, certainly not worsening. - Related Data Allergies/Adverse Reactions: erythromycin lactobionate [From Erythrocin] Allergy (Verified 01/07/18 14:48) RASH Sulfa (Sulfonamide Antibiotics) Allergy (Verified 01/07/18 14:48) RASH Home Medications: Insulin, statin, antidiabetic medication Past Medical History - General Information source: Patient - Social History Smoking Status: Unknown if Ever Smoked Chew tobacco use (# tins/day): No Frequency of alcohol use: None Drug Abuse: None Family History: None, Reviewed & Not Pertinent Patient has homicidal ideation: No - Past Medical History Cardiac Medical History: Reports: Hx Hypercholesterolemia Denies: Hx Heart Attack, Hx Hypertension Pulmonary Medical History: Denies: Hx Asthma Neurological Medical History: Denies: Hx Cerebrovascular Accident, Hx Seizures Endocrine Medical History: Reports: Hx Diabetes Mellitus Type 2 Renal/ Medical History: Denies: Hx Peritoneal Dialysis GI Medical History: Denies: Hx Hepatitis, Hx Hiatal Hernia, Hx Ulcer Infectious Medical History: Denies: Hx Hepatitis Past Surgical History: Denies: Hx Open Heart Surgery, Hx Pacemaker Review of Systems - Review of Systems Constitutional: See HPI EENT: No symptoms reported Cardiovascular: No symptoms reported Respiratory: See HPI Gastrointestinal: See HPI Genitourinary: No symptoms reported Musculoskeletal: No symptoms reported Skin: No symptoms reported Neurological/Psychological: No symptoms reported Physical Exam - Vital signs Vitals: Resp Pulse Ox 15 94 09/16/20 18:31 09/16/20 18:31 - Notes Notes: This is an 85-year-old male who appears stated age, no acute distress. Vital signs reviewed, please refer to chart. Head is normocephalic, atraumatic. Pupils equal round, reactive to light. Neck is supple without meningismus. Heart is regular rate and rhythm. Lungs reveal mildly diminished breath sounds at the bases, but no wheezes, rales, rhonchi. Abdomen is soft, nontender, normoactive bowel sounds throughout. Extremities without cyanosis, clubbing. Posterior calves are nontender. Peripheral pulses are equal. Skin is warm and dry. Patient is awake, alert, oriented x3, neurological exam is nonfocal. Course - Re-evaluation Re-evalutation: 09/16/20 23:14 Patient presents to the emergency department for evaluation. He has known Covid infection. He had laboratory investigations as ordered. His chest x-ray showed findings consistent with pneumonia. He was given Rocephin by the triage physician. I will start him on doxycycline. At any rate, he is not wheezing. He is not hypoxic. He is not tachycardic. His pressures are stable. He has no acute complaints. While he was here he actually asked for food and drink. He was unhappy with the quality of the food that was provided, has no other acute complaints or concerns. I will send him home on doxycycline. He is to follow- up with his provider at the [facility] next week. He should return to the emergency department with worsening or new concerning symptoms of any sort. - Vital Signs Vital signs: Temp Pulse Resp BP Pulse Ox 98.7 F 17 115/74 94 09/17/20 01:00 09/17/20 01:00 09/17/20 01:00 09/17/20 01:01 - Laboratory Results Result Diagrams: 09/16/20 20:00 09/16/20 20:00 Laboratory Results Interpreted: 09/16/20 09/16/20 20:00 21:44 Sodium 131.8 L Chloride 95 L BUN 40 H Glucose 260 H Magnesium 2.4 H Albumin 3.4 L Urine Protein 100 H Urine Glucose (UA) >=500 H Urine Ketones 20 H Urine Blood SMALL H Critical Laboratory Results Reviewed: No Critical Results - Radiology Results Radiology Results Interpreted: 09/16/20 23:15 Chest X-Ray 09/16/20 18:31 IMPRESSION: Left lung opacities concerning for pneumonia. Critical Radiology Results Reviewed: No Critical Results - EKG Interpretation by Me Additional EKG results interpreted by me: 09/16/20 23:18 Sinus tachycardia with a rate of 101 bpm. Left axis deviation, LAFB. Nonspecific ST changes, but no acute ST elevation concerning for infarction. No old studies immediately available for comparison. Discharge - Discharge Clinical Impression: Pneumonia due to COVID-19 virus, Hyponatremia, Dehydration Condition: Stable Disposition: HOME, SELF-CARE Instructions: COVID-19 Guidance for Persons Under Investigation, Hyponatremia (OM), Pneumonia (OM) Additional Instructions: Please take the antibiotics as prescribed until they are gone. It is important that you eat and drink as close to normally as possible to keep your strength up. Follow-up with your primary care provider next week. If you develop increased difficulty breathing, pain, or any other new or concerning symptoms, please return immediately to the emergency department for evaluation. Prescriptions: Doxycycline Hyclate [Vibramycin 100 mg Tablet] 100 mg PO BID #19 tablet Referrals: JOSE MARIA BLANKENSHIP MD [EMERITUS] - Follow up as needed
[2020-09-17 01:14] VITALS: BP 115/74
--- NOTE | 2020-09-17 12:11 | EKG REPORT ---
SEVERITY:- ABNORMAL ECG - SINUS TACHYCARDIA LEFT ANTERIOR FASCICULAR BLOCK LOW VOLTAGE IN FRONTAL LEADS BORDERLINE T ABNORMALITIES, ANT-LAT LEADS : Confirmed by: Lety Swann MD 17-Sep-2020 12:10:51
== END 2020-09-17 01:23 | disposition home or self-care (01) ==
LOC: ER 18:05
DX: U07.1 COVID-19 (principal); J12.89 Other viral pneumonia; E87.1 Hypo-osmolality and hyponatremia; E86.0 Dehydration; I44.4 Left anterior fascicular block; E11.9 Type 2 diabetes mellitus without complications; E78.00 Pure hypercholesterolemia, unspecified; Z79.899 Other long term (current) drug therapy; Z79.4 Long term (current) use of insulin; Z88.1 Allergy status to other antibiotic agents; Z88.2 Allergy status to sulfonamides
CPT/HCPCS: 93005; 99285; 96361; 96365; 36415; 87040; 83735; 84443; 85025; 80053; 81001; 84484; 71045; 93010; A9270; J7030; J0696